=== PATIENT | female | born 1950 | race Caucasian/White ===

== ENCOUNTER 2024-08-26 03:14 | Emergency (ER) | payer MEDICARE, OTHER ==
[~2024-08-26] VITALS: Ht 170.1 cm; Wt 122.0 kg
[2024-08-26] MEDS ORDERED: Ondansetron Hydrochloride 4 MG TAB SL ONE (03:45)
[2024-08-26] MEDS ORDERED: Acetaminophen/Hydrocodone 5 MG/325 MG TABLET PO ONE (03:45)
[2024-08-26] MEDS ORDERED: HYDROCODONE-AC1 EAC1 PO (04:33)
[2024-08-26] MEDS ORDERED: Ondansetron4 MG PO (09:37)
== END 2024-08-26 04:43 | disposition home or self-care (01) ==
LOC: ED 03:14
DX: S42.211A Unspecified displaced fracture of surgical neck of right humerus, initial encounter for closed fracture (principal); W00.0XXA Fall on same level due to ice and snow, initial encounter; Y93.89 Activity, other specified; Y92.89 Other specified places as the place of occurrence of the external cause; Y99.8 Other external cause status